=== PATIENT | female | born 1970 | race African-American/Black ===

== ENCOUNTER 2021-08-21 05:49 | Emergency (ER) | payer MEDICAID ==
[~2021-08-21] VITALS: Ht 167.6 cm; Wt 97.8 kg
--- NOTE | 2021-08-21 06:33 | PHYS DOC ---
Past History Past Surgical History: Hysterectomy, Other Additional Past Surgical Histo: double mastectomy, breast revision General Adult EDM: Chief Complaint: KNEE SWELLING HPI: HPI: Patient is a 51-year-old female coming in for right knee pain. Patient states that she has started to fall and caught herself 2 days ago. States she had some pain after that that she attributed to "arthritis pain" but pain and swelling have gotten worse. Patient took ibuprofen and some oxycodone she had left but is still rating her pain a 10 out of 10. Denies any significant injuries or prior surgeries to that knee. Review of Systems: Review of Systems: All other systems within normal limits except for as noted in the HPI Allergies: Allergies: Allergies Coded Allergies Type Severity Reaction Last Updated Verified Sulfa (Sulfonamide Antibiotics) Allergy Intermediate 08/21/21 Yes Physical Exam: PE: Constitutional: Well developed, well nourished, no acute distress, non-toxic appearance. [] HENT: Normocephalic, atraumatic, bilateral external ears normal, nose normal. [] Eyes: PERRLA, conjunctiva normal, no discharge. [] Neck: No rigidity, supple, no stridor. [] Cardiovascular: Regular rate and rhythm, brisk cap refill [] Lungs & Thorax: Non labored symmetric respirations, no tachypnea or respiratory distress [] Abdomen: Soft, nondistended. Skin: Warm, dry, no erythema, no rash. [] Back: Unremarkable Extremities: No deformities, range of motion grossly intact, no lower extremity edema. Right knee: Tenderness most significant at proximal edge of the patella, small joint effusion, able to hold in extension. No tenderness in popliteal fossa [] Neurologic: Alert and oriented X 3, no focal deficits noted. [] Psychologic: Affect normal, judgement normal, mood normal. [] Current Patient Data: Vital Signs: Vital Signs Date Time Temp Pulse Resp B/P (MAP) Pulse Ox O2 Delivery O2 Flow Rate FiO2 08/21/21 05:57 98.0 74 18 160/103 (122) 99 Room Air EKG: EKG: [] Radiology/Procedures: Radiology/Procedures: [address] [address] IMAGING REPORT Signed PATIENT: ISRRAEL CHANG ACCOUNT: [id number] : 1970 LOCATION: ER AGE: 51 SEX: F EXAM STATUS: REG ER ORD. PHYSICIAN: ROBLES SOTELO MD REASON: swelling, patella pain PROCEDURE: KNEE RIGHT 3V Right knee x-rays 3 views History: right patella pain, swelling. FINDINGS: Enthesophyte quadriceps insertion at the upper patella. No fracture. No dislocation. Mild bone spurring of the medial femoral condyle and tibial plateau. Soft tissues are unremarkable. IMPRESSION: No acute osseous injury. 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 Electronically signed by: Yrn Tamez MD (08/21/2021 7:01 AM) [id number] DICTATED AND SIGNED BY: YRN TAMEZ MD DATE: 08/21/21 07 CC: ROBLES SOTELO MD; NATALEE COBOS ~ [] Heart Score: C/O Chest Pain: No Risk Factors: Risk Factors: DM, Current or recent (<one month) smoker, HTN, HLP, family history of CAD, obesity. Risk Scores: Score 0 - 3: 2.5% MACE over next 6 weeks - Discharge Home Score 4 - 6: 20.3% MACE over next 6 weeks - Admit for Clinical Observation Score 7 - 10: 72.7% MACE over next 6 weeks - Early Invasive Strategies Course & Med Decision Making: Course & Med Decision Making Area of pain correlates with x-ray area of enthesophyte. Likely occult quadriceps tendon injury since pain is worse with lower extremity extension. Placed in brace and given instructions for orthopedic follow-up [place] Disclaimer: [place] Disclaimer: This electronic medical record was generated, in whole or in part, using a voice recognition dictation system. Departure Departure: Impression: Primary Impression: Quadriceps tendonitis Disposition: HOME / SELF CARE / HOMELESS Condition: STABLE Referrals: QUINN BRIGHT Jr. DO Patient Instructions: RICE - Routine Care for Injuries Scripts Hydrocodone Bit/Acetaminophen (HYDROCODONE-APAP 5-325 ) 1 Each Tablet 1 TAB PO PRN Q6HRS PRN for PAIN for 3 Days, #12 TAB 0 Refills Prov: ROBLES SOTELO MD 08/21/21 Meloxicam (MELOXICAM) 15 Mg Tablet 1 TAB PO DAILY for inflammation for 14 Days, #14 TAB 0 Refills Prov: ROBLES SOTELO MD 08/21/21 ROBLES SOTELO MD August 21, 2021 06:33
[2021-08-21 06:42] VITALS: BP 173/112
[2021-08-21] MEDS ORDERED: HYDROcodone/APAP 7.5/325MG 1 TAB TABLET PO ONE (07:00)
--- NOTE | 2021-08-21 07:04 | RAD ---
Right knee x-rays 3 views History: right patella pain, swelling. FINDINGS: Enthesophyte quadriceps insertion at the upper patella. No fracture. No dislocation. Mild b one spurring of the medial femoral condyle and tibial plateau. Soft tissues are unremarkable. IMPRESSION: No acute osseous injury. 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 Electronically signed by: Uriel Tamez MD (08/21/2021 7:01 AM) [id number]
[2021-08-21] MEDS ORDERED: MELO15TA23 PO (07:22)
[2021-08-21] MEDS ORDERED: HYDR-2155 PO (07:22)
== END 2021-08-21 07:40 | disposition home or self-care (01) ==
LOC: ER 05:49
DX: M76.891 Other specified enthesopathies of right lower limb, excluding foot (principal); Z88.2 Allergy status to sulfonamides
CPT/HCPCS: 29505; 73562; 99283